=== PATIENT | male | born 1960 | race African-American/Black ===

== ENCOUNTER 2016-10-09 18:08 | Emergency (ER) | payer SELFPAY ==
[2016-10-09 18:17] VITALS: BP 152/104
[2016-10-09] MEDS ORDERED: NORCO 5/325 PO ONE (19:29)
[2016-10-09] MEDS ORDERED: NACL 0.9% IR ONE (19:30)
--- NOTE | 2016-10-09 19:53 | Emergency Department Report ---
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 denies: suspects foreign body, nausea/ vomiting, heard/felt popping sensat Treatments Prior to Arrival: other (none ) - Related Data Previous Rx's Medication Instructions Recorded Last Taken Type Bacitracin [Bacitracin Ophth] 1 applicatio OP BID #1 tube 10/09/16 Unknown Rx Cephalexin [Keflex] 500 mg PO QID #10 capsule 10/09/16 Unknown Rx traMADol [Ultram 50 MG tab] 50 mg PO Q6HR PRN #30 tablet 10/09/16 Unknown Rx Allergies Allergy/AdvReac Type Severity Reaction Status Date / Time No Known Allergies Allergy Unverified 10/09/16 18:14 ED Review of Systems ROS: Stated complaint: LT FINGER LACERATION Other details as noted in HPI Constitutional: denies: chills, fever Eyes: denies: eye pain, eye discharge, vision change ENT: denies: ear pain, throat pain Respiratory: denies: cough, shortness of breath, wheezing Cardiovascular: denies: chest pain, palpitations Endocrine: no symptoms reported Gastrointestinal: denies: abdominal pain, nausea, diarrhea Musculoskeletal: myalgia Skin: other (lacerations left 1st and 2nd digits ) Neurological: denies: headache, weakness, paresthesias Psychiatric: denies: anxiety, depression ED Past Medical Hx - Past Medical History Previous Medical History?: Yes Hx Kidney Stones: Yes - Surgical History Past Surgical History?: No - Social History Smoking Status: Current Every Day Smoker Substance Use Type: Alcohol - Medications Home Medications: Home Medications Medication Instructions Recorded Confirmed Last Taken Type Bacitracin [Bacitracin Ophth] 1 applicatio OP BID #1 tube 10/09/16 Unknown Rx Cephalexin [Keflex] 500 mg PO QID #10 capsule 10/09/16 Unknown Rx traMADol [Ultram 50 MG tab] 50 mg PO Q6HR PRN #30 tablet 10/09/16 Unknown Rx ED Physical Exam - General Limitations: No Limitations General appearance: alert, in no apparent distress - Head Head exam: Present: atraumatic, normocephalic - Eye Eye exam: Present: normal appearance - ENT ENT exam: Present: mucous membranes moist - Neck Neck exam: Present: normal inspection - Respiratory Respiratory exam: Present: normal lung sounds bilaterally. Absent: respiratory distress - Cardiovascular Cardiovascular Exam: Present: regular rate, normal rhythm. Absent: systolic murmur, diastolic murmur, rubs, gallop - GI/Abdominal GI/Abdominal exam: Present: soft, normal bowel sounds - Rectal Rectal exam: Present: deferred - Expanded Upper Extremity Exam Left General: Present: laceration Hand Wrist exam: Present: tenderness, swelling, laceration, other (left 1st and 2nd digits schuler at 2nd joint ) Hand L/R Front: 1 - Positive: laceration 2 - Positive: laceration Neuro motor exam: Present: wrist extension intact, thumb opposition intact, thumb IP flexion intact, thumb adduction intact, fingers 2-5 abduction intact, other (restricted by pain ) Neurosensory exam: Present: 2-point discrimination, radial nerve intact, ulnar nerve intact, median nerve intact Vascular: Present: normal capillary refill, radial pulse, brachial pulse, ulnar pulse. Absent: vascular compromise, pulse deficit radial art, pulse deficit ulnar art, pulse deficit brachial art - Back Exam Back exam: Present: normal inspection - Neurological Exam Neurological exam: Present: alert, oriented X3 - Psychiatric Psychiatric exam: Present: normal affect, normal mood - Skin Skin exam: Present: warm, dry ED Course Vital Signs 10/09/16 18:15 Temperature 98.2 F Pulse Rate 73 Respiratory 18 Rate Blood Pressure 152/104 O2 Sat by Pulse 96 Oximetry - Laceration /Wound Repair Left Palm Finger Wound Location: upper extremity Wound Explored: clean Irrigated w/ Saline (ccs): 100 Betadine Prep?: Yes Anesthesia: 1% Lidocaine Volume Anesthetic (ccs): 3 Wound Debrided: no foreignbody noted Wound Repaired With: sutures Suture Size/Type: 3:0, nylon Number of Sutures: 8 (running ) Layer Closure?: No Sterile Dressing Applied?: Yes Progress: left thumb lacerated approx 2 cm irregular mild bleeding , anesthesia with lidocain 1% plain, wound cleaned with betadine prep, irrigated with approx 100 cc ns. 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 Vance tomorrow as directed, pt tx with keflex 500mg po bid x 10 days, TDap, Tramdol prn pain , pt is currently a/o x 3 ambulatory gait steasdy with nad at this time. pt verbalized agreement and understanding with discharge plan. Critical care attestation.: If time is entered above; I have spent that time in minutes in the direct care of this critically ill patient, excluding procedure time. ED Disposition Clinical Impression: Closed fracture of proximal phalanx of finger of left hand Laceration of thumb without complication Qualifiers: Encounter type: initial encounter Laterality: left Qualified Code(s): S61.012A - Laceration without foreign body of left thumb without damage to nail, initial encounter Disposition: TO HOME OR SELFCARE Is pt being admited?: No Does the pt Need Aspirin: No Condition: Good Instructions: Finger Fracture (ED), Finger Laceration (ED) Additional Instructions: Keep wound dry and clean take antibiotic as prescribed return ion 10 day for suture removal , return for symptoms of infection as directed Prescriptions: Bacitracin [Bacitracin Ophth] 1 applicatio OP BID #1 tube Cephalexin [Keflex] 500 mg PO QID #10 capsule traMADol [Ultram 50 MG tab] 50 mg PO Q6HR PRN #30 tablet PRN Reason: Pain Referrals: ASIM VNACE MD [Staff Physician] - 3-5 Days Forms: Work/School Release Form(ED) Time of Disposition: 21:24
[2016-10-09] MEDS ORDERED: XYLOCAINE 1% 20 mL INFILTRATI ONE (20:28)
--- NOTE | 2016-10-09 20:39 | XRay Report ---
FINAL REPORT EXAM: XR FINGER(S) 2 LT HISTORY: laceration TECHNIQUE: Left 2nd digit three views PRIORS: None. FINDINGS: There is acute traumatic mildly displaced fracture proximal aspect middle phalanx of the 2nd digit. No radiopaque foreign bodies are identified. The joint spaces appear within normal limits. IMPRESSION: Acute fracture the middle phalanx 2nd digit
== END 2016-10-09 21:46 | disposition home or self-care (01) ==
LOC: ED 18:08
DX: S62.611A Displaced fracture of proximal phalanx of left index finger, initial encounter for closed fracture (principal); S61.012A Laceration without foreign body of left thumb without damage to nail, initial encounter; F17.200 Nicotine dependence, unspecified, uncomplicated; W26.8XXA Contact with other sharp object(s), not elsewhere classified, initial encounter; Y93.89 Activity, other specified; Y99.8 Other external cause status; Y92.89 Other specified places as the place of occurrence of the external cause